=== PATIENT | male | born 1995 | race Caucasian/White ===

== ENCOUNTER 2022-11-07 21:01 | Emergency (ER) | payer BC ==
[2022-11-07] MEDS ORDERED: Fluorescein Opthalmic Strip ONE (21:12)
[2022-11-07] MEDS ORDERED: Tetracaine 0.5% PF 4 ML BOT ONE (21:12)
[2022-11-07] MEDS ORDERED: Erythromycin Base 0.5% Ophth Oint 3.5 gm Tube ONE (21:21)
== END 2022-11-07 21:38 | disposition home or self-care (01) ==
LOC: BURERS 21:01
DX: S05.01XA Injury of conjunctiva and corneal abrasion without foreign body, right eye, initial encounter (principal); F17.210 Nicotine dependence, cigarettes, uncomplicated; W50.0XXA Accidental hit or strike by another person, initial encounter
CPT/HCPCS: 99283